=== PATIENT | male | born 1960 | race Caucasian/White ===

== ENCOUNTER 2020-01-23 08:35 | Emergency (ER) | payer BC ==
--- NOTE | 2020-01-23 08:43 | EDM.PDOC ---
ED HPI GENERAL MEDICAL PROBLEM - General Chief Complaint: Chest Pain Stated Complaint: CHEST PAIN Time Seen by Provider: 01/23/20 08:35 Source of Information: Reports: Patient History Limitations: Reports: Other (no old records) - History of Present Illness INITIAL COMMENTS - FREE TEXT/NARRATIVE: 59 yo male presents with L anterior and posterior pleuritic type chest pain for about 2 weeks, worse since yesterday. No fever or cough or SOB. No calf pain or LE edema. Is a non-smoker. Also has has some numbness down his L arm, especially the little finger. No neck pain. Nothing seems to alleviate or worsen the L arm numbness. No diaphoresis. Is new in the area. Onset: Gradual Onset Date: 01/09/20 Duration: Week(s): (2), Getting Worse Location: Reports: Chest, Upper Extremity, Left Quality: Reports: Sharp (chest sx's), Stabbing Severity: Moderate Improves with: Reports: Other (shallow breathing) Worsens with: Reports: Other (deep breathing) Context: Reports: Other (See HPI) Associated Symptoms: Reports: Chest Pain. Denies: Diaphoresis, Fever/Chills, Nausea/Vomiting, Rash, Shortness of Breath, Syncope Treatments [employer]: Reports: Other (see below) (none) Chest Pain Score (Numeric/FACES): 6 - Related Data Allergies Allergy/AdvReac Type Severity Reaction Status Date / Time No Known Allergies Allergy Verified 01/23/20 08:38 Home Meds: Home Meds Aspirin 81 mg PO DAILY 01/23/20 [History] Atenolol/Chlorthalidone [Atenolol-Chlorthalidone 50-25] 1 tab PO DAILY 01/23/20 [History] FLUoxetine HCl [Fluoxetine HCl] 20 mg PO DAILY 01/23/20 [History] L.acidoph,Paracasei, B.lactis [Probiotic] 1 cap PO DAILY 01/23/20 [History] amLODIPine Besylate [Amlodipine Besylate] 5 mg PO DAILY 01/23/20 [History] ED ROS GENERAL - Review of Systems Review Of Systems: See Below Constitutional: Reports: No Symptoms HEENT: Reports: No Symptoms Respiratory: Reports: Pleuritic Chest Pain. Denies: Shortness of Breath, Wheezing, Cough, Sputum, Hemoptysis Cardiovascular: Reports: No Symptoms Endocrine: Reports: No Symptoms GI/Abdominal: Reports: No Symptoms : Reports: No Symptoms Musculoskeletal: Reports: No Symptoms Skin: Reports: No Symptoms Neurological: Reports: No Symptoms Psychiatric: Reports: No Symptoms ED EXAM, GENERAL - Physical Exam Exam: See Below Exam Limited By: No Limitations General Appearance: Alert, WD/WN, No Apparent Distress, Obese Eye Exam: Bilateral Eye: Normal Inspection Ears: Normal External Exam, Normal Canal, Hearing Grossly Normal Ear Exam: Bilateral Ear: Auricle Normal, Canal Normal Nose: Normal Inspection, No Blood Throat/Mouth: Normal Inspection, Normal Lips, Normal Oropharynx, Normal Voice, No Airway Compromise Head: Atraumatic, Normocephalic Neck: Normal Inspection Respiratory/Chest: No Respiratory Distress, Lungs Clear, Normal Breath Sounds, No Accessory Muscle Use, Chest Non-Tender Cardiovascular: Normal Peripheral Pulses, Regular Rate, Rhythm, No Edema GI/Abdominal: Normal Bowel Sounds, Soft, Non-Tender, No Distention. No: Distended Back Exam: Normal Inspection. No: CVA Tenderness (R), CVA Tenderness (L) Extremities: Normal Inspection, Normal Range of Motion, Non-Tender, No Pedal Edema Neurological: Alert, Oriented, CN II-XII Intact, Normal Cognition, No Motor/Se nsory Deficits Psychiatric: Normal Affect, Normal Mood Skin Exam: Warm, Dry, Intact, Normal Color, No Rash EKG INTERPRETATION EKG Date: 01/23/20 Time: 08:35 Rhythm: NSR Rate (Beats/Min): 55 [place]: Normal P-Wave: Present QRS: Normal ST-T: Normal QT: Normal Comparison: NA - No Prior EKG Course - Vital Signs Last Recorded V/S: Last Vital Signs Temp 36.6 C 01/23/20 08:46 Pulse 56 L 01/23/20 08:46 Resp 16 01/23/20 08:46 BP 158/92 H 01/23/20 08:46 Pulse Ox 100 01/23/20 08:46 - Orders/Labs/Meds Orders: Active Orders 24 hr Category Date Time Status Cardiac Monitoring [RC] .As Directed Care 01/23/20 08:41 Active EKG Documentation Completion [RC] ASDIRECTED Care 01/23/20 08:41 Active Cervical Spine 2V or 3V [CR] Stat Exams 01/23/20 09:34 Taken Sodium Chloride 0.9% [Saline Flush] Med 01/23/20 08:48 Active 10 ml FLUSH ASDIRECTED PRN Saline Lock Insert [OM.PC] Routine Oth 01/23/20 08:48 Ordered EKG 12 Lead [EK] Routine Ther 01/23/20 08:41 Ordered Medication Orders Sodium Chloride (Saline Flush) 10 ml FLUSH ASDIRECTED PRN PRN Reason: Keep Vein Open Last Admin: 01/23/20 08:55 Dose: 10 ml Documented by: [id number] Labs: Laboratory Tests 01/23/20 01/23/20 01/23/20 Range/Units 08:48 08:48 09:07 WBC 10.1 (4.5-11.0) K/uL RBC 5.28 (4.30-5.90) M/uL Hgb 16.0 H (12.0-15.0) g/dL Hct 47.4 (40.0-54.0) % MCV 90 (80-98) fL MCH 30 (27-31) pg MCHC 34 (32-36) % Plt Count 306 (150-400) K/uL D-Dimer, Quantitative 160 (0.0-400.0) ng/mL Sodium 143 (140-148) mmol/L Potassium 3.5 L (3.6-5.2) mmol/L Chloride 105 (100-108) mmol/L Carbon Dioxide 30 (21-32) mmol/L Anion Gap 11.5 (5.0-14.0) mmol/L BUN 15 (7-18) mg/dL Creatinine 0.9 (0.8-1.3) mg/dL Est Cr Clr Drug Dosing 91.25 mL/min Estimated GFR (MDRD) > 60 (>60) Glucose 103 (74-106) mg/dL Calcium 9.5 (8.5-10.1) mg/dL Troponin I < 0.017 (0.000-0.056) ng/mL Meds: Medications Generic Name Dose Route Start Last Admin Trade Name Freq PRN Reason Stop Dose Admin Sodium Chloride 10 ml 01/23/20 08:48 01/23/20 08:55 Saline Flush FLUSH 10 ml ASDIRECTED PRN Administration Keep Vein Open Discontinued Medications Generic Name Dose Route Start Last Admin Trade Name Freq PRN Reason Stop Dose Admin Acetaminophen 1,000 mg 01/23/20 09:36 01/23/20 09:50 Tylenol Extra Strength PO 01/23/20 09:37 1,000 mg ONETIME ONE Administration Ketorolac Tromethamine 30 mg 01/23/20 08:48 01/23/20 08:54 Toradol IVPUSH 01/23/20 08:49 30 mg ONETIME ONE Administration - Radiology Interpretation Free Text/Narrative:: CXR-neg Cervical spine X-ray-degen changes noted - Re-Assessments/Exams Free Text/Narrative Re-Assessment/Exam: 01/23/20 09:35 Pain is reduced after Toradol, but notes now that it seems like neck extension worsens his sx's. Will get a c-spine X-rays. Departure - Departure Time of Disposition: 10:00 Disposition: Home, Self-Care 01 Condition: Fair Clinical Impression: Cervical spine arthritis with nerve pain Instructions: Cervical Radiculopathy Referrals: PCP,None [Primary Care Provider] - Forms: ED Department Discharge Additional Instructions: Take meloxicam 15 mg daily starting later today. You may take acetaminophen as needed for added relief. Take gabapentin 100 mg in the morning and 200 mg at night. Keep your appt for later today in the clinic as you may need a referral to neurology. Sepsis Event Note (ED) - Focused Exam Vital Signs: Vital Signs Temp Pulse Resp BP Pulse Ox 01/23/20 08:46 36.6 C 56 L 16 158/92 H 100 01/23/20 08:39 36.6 C 56 L 16 158/92 H 100 - My Orders Last 24 Hours: My Active Orders 01/23/20 08:41 Cardiac Monitoring [RC] .As Directed EKG Documentation Completion [RC] ASDIRECTED EKG 12 Lead [EK] Routine 01/23/20 08:48 Sodium Chloride 0.9% [Saline Flush] 10 ml FLUSH ASDIRECTED PRN Saline Lock Insert [OM.PC] Routine 01/23/20 09:34 Cervical Spine 2V or 3V [CR] Stat - Assessment/Plan Last 24 Hours: My Active Orders 01/23/20 08:41 Cardiac Monitoring [RC] .As Directed EKG Documentation Completion [RC] ASDIRECTED EKG 12 Lead [EK] Routine 01/23/20 08:48 Sodium Chloride 0.9% [Saline Flush] 10 ml FLUSH ASDIRECTED PRN Saline Lock Insert [OM.PC] Routine 01/23/20 09:34 Cervical Spine 2V or 3V [CR] Stat
[2020-01-23] MEDS ORDERED: Ketorolac 30 MG/ML SDV IVPUSH ONE (08:48)
[2020-01-23] MEDS ORDERED: Sodium Chloride 0.9% 10 ML Syringe FLUSH PRN (08:48)
[2020-01-23] MEDS ORDERED: Acetaminophen 500 MG Tab PO ONE (09:36)
--- NOTE | 2020-01-23 09:37 | CR ---
CHEST: 2 view CLINICAL HISTORY:Pleuritic pain COMPARISON:None FINDINGS: Heart size is upper limits of normal. Pulmonary vascularity is normal. No infiltrate effusion or pneumothorax seen. There is a 1 cm nodular density in the left midlung field laterally. This may be granulomatous. There are atherosclerotic changes in the aorta. Impression: No acute cardiopulmonary process Left midlung nodule of unknown chronology. Prior films would be helpful. If there are none, short-term follow-up chest x-ray in 6-[address] chest should be considered.
--- NOTE | 2020-01-23 10:19 | CR ---
Cervical Spine 2V or 3V CLINICAL HISTORY: Neck pain FINDINGS: The vertebral body heights are intact. The disc spaces are diffusely narrowed. There is accompanying spondylosis. There is severe osteoarthritic change in the facets. There is slight head tilt into the right with the levoscoliosis. This could be due to spasm. Alignment is maintained Impression: Moderate degenerative disc disease with spondylosis Severe osteoarthritis in the apophyseal joints. No fracture or subluxation
== END 2020-01-23 10:08 | disposition home or self-care (01) ==
LOC: JP.ED 08:35
DX: M46.92 Unspecified inflammatory spondylopathy, cervical region (principal); M79.2 Neuralgia and neuritis, unspecified; Z79.82 Long term (current) use of aspirin; Z79.899 Other long term (current) drug therapy
CPT/HCPCS: 36415; 71046; 72040; 80048; 84484; 85027; 85379; 93005; 96374; 99285; A9270; J1885; 93010

== ENCOUNTER 2020-12-30 18:28 | Emergency (ER) | payer BC ==
--- NOTE | 2020-12-30 19:31 | EDM.PDOC ---
ED HPI GENERAL MEDICAL PROBLEM - General Chief Complaint: Abdominal Pain Stated Complaint: STOMACH PAINS Time Seen by Provider: 12/30/20 19:10 Source of Information: Reports: Patient, Family History Limitations: Reports: No Limitations - History of Present Illness INITIAL COMMENTS - FREE TEXT/NARRATIVE: 60-year-old male with abdominal bloating and pain that is been waxing and waning over the past 4 days. He is also developed some mild diarrhea. He has a history of "Campylobacter" and it feels similar. No fevers or chills, he actually feels pretty good right now. No pain radiating to the back. Denies shortness of breath or chest pain. Onset: Gradual Duration: Waxing/Waning (Intermittent symptoms for the past 4 days) Location: Reports: Abdomen (Upper abdomen) Quality: Reports: Ache, Pressure, Other (Bloated distended feeling) Worsens with: Reports: Other (Seems to be worse after eating) Associated Symptoms: Reports: No Other Symptoms Upper Abdominal Pain Score (Numeric/FACES): 8 - Related Data Allergies Allergy/AdvReac Type Severity Reaction Status Date / Time No Known Allergies Allergy Verified 12/30/20 18:58 Home Meds: Home Meds Aspirin 81 mg PO DAILY 01/23/20 [History] Atenolol/Chlorthalidone [Atenolol-Chlorthalidone 50-25] 1 tab PO DAILY 01/23/20 [History] FLUoxetine HCl [Fluoxetine HCl] 20 mg PO DAILY 01/23/20 [History] L.acidoph,Paracasei, B.lactis [Probiotic] 2 cap PO DAILY 01/23/20 [History] Meloxicam [Mobic] 15 mg PO DAILY #30 tablet 01/23/20 [Rx] amLODIPine Besylate [Amlodipine Besylate] 5 mg PO DAILY 01/23/20 [History] Past Medical History HEENT History: Reports: Impaired Vision Cardiovascular History: Reports: Hypertension Gastrointestinal History: Reports: GERD Genitourinary History: Reports: Prostate Disorder Musculoskeletal History: Reports: Arthritis, Fracture Psychiatric History: Reports: Depression Hematologic History: Reports: Anticoagulation Therapy - Infectious Disease History Infectious Disease History: Reports: Chicken Pox, Mononucleosis, Mumps - Past Surgical History HEENT Surgical History: Reports: Naso-Sinus Surgery, Tonsillectomy Musculoskeletal Surgical History: Reports: Other (See Below) Other Musculoskeletal Surgeries/Procedures:: cubitaltunnel syndrome Social & Family History - Tobacco Use Tobacco Use Status *Q: Never Tobacco User ED ROS GENERAL - Review of Systems Review Of Systems: See Below Constitutional: Denies: Fever, Chills, Malaise HEENT: Reports: No Symptoms Respiratory: Reports: No Symptoms Cardiovascular: Reports: No Symptoms GI/Abdominal: Reports: Abdominal Pain : Reports: No Symptoms ED EXAM, GI/ABD - Physical Exam Exam: See Below Exam Limited By: No Limitations General Appearance: Alert, No Apparent Distress Eyes: Bilateral: Normal Appearance (No jaundice) Head: Atraumatic Neck: Supple, Non-Tender Respiratory/Chest: Lungs Clear Cardiovascular: Regular Rate, Rhythm GI/Abdominal Exam: Normal Bowel Sounds, Soft, Tender (Mild tenderness to palpation across the upper abdomen but no focal pain or rebound tenderness) Extremities: No: Pedal Edema Neurological: Alert, Oriented Psychiatric: Normal Affect, Normal Mood Skin Exam: Warm Course - Vital Signs Last Recorded V/S: Last Vital Signs Temp 98.1 F 12/30/20 19:02 Pulse 58 L 12/30/20 19:02 Resp 16 12/30/20 19:02 BP 166/83 H 12/30/20 19:02 Pulse Ox 97 12/30/20 19:02 - Orders/Labs/Meds Labs: Laboratory Tests 12/30/20 12/30/20 Range/Units 19:35 19:35 WBC 11.5 H (4.5-11.0) K/uL RBC 4.99 (4.30-5.90) M/uL Hgb 15.2 H (12.0-15.0) g/dL Hct 44.5 (40.0-54.0) % MCV 89 (80-98) fL MCH 31 (27-31) pg MCHC 34 (32-36) % Plt Count 330 (150-400) K/uL Neut % (Auto) 74.7 H (36-66) % Lymph % (Auto) 16.5 L (24-44) % [place] % (Auto) 6.4 H (2-6) % Eos % (Auto) 2.1 (2-4) % Baso % (Auto) 0.3 (0-1) % Sodium 141 (140-148) mmol/L Potassium 3.4 L (3.6-5.2) mmol/L Chloride 102 (100-108) mmol/L Carbon Dioxide 27 (21-32) mmol/L Anion Gap 15.4 H (5.0-14.0) mmol/L BUN 17 (7-18) mg/dL Creatinine 0.8 (0.8-1.3) mg/dL Est Cr Clr Drug Dosing 101.39 mL/min Estimated GFR (MDRD) > 60 (>60) Glucose 94 (74-106) mg/dL Calcium 9.6 (8.5-10.1) mg/dL Total Bilirubin 0.3 (0.2-1.0) mg/dL AST 17 (15-37) U/L ALT 29 (12-78) U/L Alkaline Phosphatase 103 (46-116) U/L Total Protein 7.4 (6.4-8.2) g/dL Albumin 3.6 (3.4-5.0) g/dL Globulin 3.8 H (2.3-3.5) g/dL Albumin/Globulin Ratio 1.0 L (1.2-2.2) Lipase 152 (73-393) U/L - Re-Assessments/Exams Free Text/Narrative Re-Assessment/Exam: 12/30/20 19:30 Bedside ultrasound showed a normal gallbladder wall, small amount of sludge within the gallbladder but no obvious inflammation or stones. No intra- abdominal free fluid. He really was not very tender with pressure of the ultrasound probe even over the gallbladder. CBC, CMP and lipase were obtained. 12/30/20 22:21 Labs returned generally reassuring, lipase was normal. Patient did remember that he normally takes Prilosec but has not taken any for the last several days, he probably has some emerging gastritis and was encouraged to start retaking the omeprazole. He can return if worsening such as fevers or increased pain. Departure - Departure Time of Disposition: 20:38 Disposition: Home, Self-Care 01 Clinical Impression: Gastritis - Discharge Information Instructions: Gastritis, Adult, [id number] Referrals: Yovany Chiu NP [Primary Care Provider] - Forms: ED Department Discharge Care Plan Goals: Restart your Prilosec and take it consistently for the next 10 to 14 days. You should start improving within days, you can return at any time if worsening such as fever or increased pain. Sepsis Event Note (ED) - Evaluation Sepsis Screening Result: No Definite Risk - Focused Exam Vital Signs: Vital Signs Temp Pulse Resp BP Pulse Ox 12/30/20 19:02 98.1 F 58 L 16 166/83 H 97 12/30/20 18:49 98.1 F 58 L 16 166/83 H 97
== END 2020-12-30 20:39 | disposition home or self-care (01) ==
LOC: JP.ED 18:28
DX: K29.70 Gastritis, unspecified, without bleeding (principal); I10 Essential (primary) hypertension; Z79.82 Long term (current) use of aspirin; Z79.899 Other long term (current) drug therapy
CPT/HCPCS: 36415; 80053; 83690; 85025; 99284-25

== ENCOUNTER 2024-02-26 06:47 | Day surgery (SDC) | payer BC ==
[2024-02-26] MEDS: Lactated Ringers 1,000 ML IV SCH (07:35)
[2024-02-26] MEDS ORDERED: Propofol 200 MG/20 ML SDV ONE (08:07)
[2024-02-26] MEDS ORDERED: Midazolam 1 MG/ML 2 ML SDV ONE (08:07)
[2024-02-26] MEDS ORDERED: fentaNYL 50 MCG/ML SDV ONE (08:07)
[2024-02-26] MEDS ORDERED: Glycopyrrolate 0.2 MG/ML 2 ML SDV ONE (08:44)
== END 2024-02-26 10:03 | disposition home or self-care (01) ==
LOC: JP.SDS 06:47
PROVIDERS: ATTEND Family Medicine
DX: Z12.11 Encounter for screening for malignant neoplasm of colon (principal); D12.5 Benign neoplasm of sigmoid colon; I10 Essential (primary) hypertension; E78.5 Hyperlipidemia, unspecified; K21.9 Gastro-esophageal reflux disease without esophagitis
CPT/HCPCS: 00811; 45380; 88305; J2250; J2704; J3010; J3490; J7120